=== PATIENT | female | born 1965 | race Caucasian/White ===

== ENCOUNTER 2020-06-12 09:09 | Outpatient (CLI) | payer BC, SELFPAY ==
--- NOTE | 2020-06-12 09:13 | US_ITS ---
WS: [id number] Complete ABDOMINAL ULTRASOUND HISTORY: ELEVATED LFT'S COMPARISON: None available. Liver: 17.4 cm in length. Liver is slightly enlarged with moderate coarsened echotexture. No mass or bile duct dilatation. Gallbladder: Prior cholecystectomy. Pancreas: Head and tail are poorly visualized. The body is negative. CBD: 0.5 cm. Right kidney: 11.0 cm x 4.4 cm x 4.3 cm. Normal size kidney. There is an exophytic solid appearing n odule from the inferior pole measuring 1.3 x 1.6 x 1.4 cm. Hypoechoic nodule is probably a cyst from the upper pole measuring 1.9 x 1.9 x 2.7 cm. Left kidney: 11.3 cm x 4.8 cm x 4.6 cm. No mass, cortical thickening or hydronephrosis. Spleen: Normal size and echogenicity. Abdominal aorta and IVC are within normal limits. No ascites. US/US abdomen complete* [id number] IMPRESSION: 1. Suspicious for solid renal mass lower pole RIGHT kidney. Additional complex cyst upper pole RIGHT kidney. Recommend [address] protocol for fur ther evaluation. 2. Prior cholecystectomy. 3. Mild hepatomegaly with hepatic steatosis.
== END 2020-06-12 09:10 | disposition home or self-care (01) ==
PROVIDERS: PCP Nurse Practitioner; Visit Provider Nurse Practitioner
DX: R94.5 Abnormal results of liver function studies (principal); R16.0 Hepatomegaly, not elsewhere classified; K76.0 Fatty (change of) liver, not elsewhere classified
CPT/HCPCS: 76700

== ENCOUNTER 2020-10-14 09:55 | Outpatient (CLI) | payer OTHER, SELFPAY ==
--- NOTE | 2020-10-14 10:03 | CT_ITS ---
WS: [id number] CT ABDOMEN NON-CONTRAST PLUS CONTRAST TECHNIQUE: Noncontrast CT of the abdomen and contrast-enhanced CT of the abdomen with coronal and sag ittal reformatted images. CLINICAL INFORMATION: RIGHT RENAL MASS, OTHER DISORDERS OF KIDNEY AND URETER COMPARISON: Ultrasound June 12, 2020 DLP: 2077.[address] scans at [facility] use at least one of these dose optimization techniques: automat ed exposure control; mA and/or kV adjustment per patient size (includes targeted exams where dose is matched to clinical indication); or iterative reconstruction. FINDINGS: Small low-attenuation cortical lesion lower pole right kidney laterally with no significant enhanceme nt. This appears to represent a small complex renal cyst. This measures approximately 1.2 x 1.1 x 1.2 CM. Additional smaller subcentimeter low-attenuation lesions likely renal cysts but difficult to definiti vely characterize. Incidental cyst upper pole right kidney measuring 1.8 x 1.8 cm. Diffuse fatty infiltration of the liver. Cholecystectomy clips. Normal spleen. Adrenal glands are nor mal. Mild fatty atrophy of the pancreas. Normal proximal ureters. Lung bases are well aerated. Normal GE junction. No abdominal lymphadenopathy. Disc space narrowing L5-S1. CT/CT abdomen wo/w con [id number] IMPRESSION: 1. Exophytic right lower lobe renal lesion most consistent with a small comple x renal cyst described above. No significant enhancement. Recommend 6-12 month follow-up with contrast-enhanced CT. 2. Additional smaller low-attenuation lesions bilaterally likely renal cysts b ut some are too small to characterize. 3. Right upper pole renal cyst measuring 1.8 x 1.8 cm. 4. No hydronephrosis in either kidney. 5. Normal adrenal glands. 6. Cholecystectomy. 7. Diffuse fatty infiltration liver.
[2020-10-14] MEDS: iohexol 300 mg/mL 100 mL Btl IV (10:34)
== END 2020-10-14 09:56 | disposition home or self-care (01) ==
PROVIDERS: PCP Nurse Practitioner; Visit Provider Nurse Practitioner
DX: N28.89 Other specified disorders of kidney and ureter (principal); K76.89 Other specified diseases of liver; Z90.49 Acquired absence of other specified parts of digestive tract; N28.1 Cyst of kidney, acquired
CPT/HCPCS: 74170; Q9967

== ENCOUNTER 2021-04-25 08:18 | Outpatient (CLI) | payer OTHER, SELFPAY ==
--- NOTE | 2021-04-25 | CT_ITS ---
WS: [id number] CT ABDOMEN WITH CONTRAST HISTORY: RENAL MASS Contiguous single phase 5 mm axial imaging performed to the abdomen. Oral contrast has not been provi ded. Coronal and sagittal reformats are submitted. All CT scans at [facility] use at least on e of these dose optimization techniques: automated exposure control; mA and/or kV adjustment per cameron ent size (includes targeted exams where dose is matched to clinical indication); or iterative reconst ruction. CONTRAST: Omnipaque 300; 95 mL IV. DLP: 2076.65 mGycm COMPARISON: 10/14/2020 Lower thorax: Lungs are clear. Normal heart. No hiatal hernia. Liver: Mild hepatic steatosis and hepatomegaly. No bile duct dilatation or mass. Gallbladder: Prior cholecystectomy. Pancreas: Normal. Spleen: Normal. Adrenals: Normal. Right kidney: Normal size kidney. Simple cyst upper pole measures 1.6 cm and is unchanged. There is a smaller cyst in the mid kidney. Exophytic 11 mm nodule from the lower pole is unchanged in size. Thi s did not enhance on the prior study and consistent with a benign-appearing cyst. Hounsfield units ar e low today. Left kidney: There are a few small cortical hypodensities which are too small to characterize. No mas s or obstruction. Aorta: Normal. GI tract: As visualized within the abdomen normal. No adenopathy or free fluid. Abdominal wall: No hernia. Visualized osseous structures: Unremarkable. CT/CT abdomen w con* [id number] IMPRESSION: 1. No solid renal mass or enlarging mass. 2. No enhancement of the 11 mm nodule from the lower pole of the RIGHT kidney. Hounsfield units are low consistent with a simple cyst. 3. Additional cysts within the RIGHT kidney are stable. Next a prior cholecyst ectomy.
[2021-04-25] MEDS: iohexol 300 mg/mL 100 mL Btl IV (09:58)
== END 2021-04-25 08:19 | disposition home or self-care (01) ==
LOC: RADWPI 08:20
PROVIDERS: PCP Nurse Practitioner; Visit Provider Nurse Practitioner
DX: N28.89 Other specified disorders of kidney and ureter (principal)
CPT/HCPCS: 74160; Q9967

== ENCOUNTER 2021-06-26 11:36 | Outpatient (CLI) | payer OTHER, SELFPAY ==
--- NOTE | 2021-06-26 11:43 | MM_ITS ---
WS: [id number] Bilateral screening digital mammogram, 06/26/2021 Clinical Data: SCREENING Comparison: 12/21/2019 Findings: The breast parenchymal pattern shows fat replacement. No spiculated masses or clustered calcification s are seen. There are no secondary signs of carcinoma. MM/[place] [id number] Impression: 1. Negative bilateral mammogram unchanged. 2. Recommend annual screening mammograms. BIRADS: 1-Negative FOLLOW UP: 1 Year Follow-up The CAD electric distribution checker was used.
== END 2021-06-26 11:37 | disposition home or self-care (01) ==
LOC: RADSHAW 11:41
PROVIDERS: PCP Nurse Practitioner; Visit Provider Nurse Practitioner
DX: Z12.31 Encounter for screening mammogram for malignant neoplasm of breast (principal)
CPT/HCPCS: 77067

== ENCOUNTER → 2021-07-17 08:52 | Outpatient (BNVA) | payer OTHER, SELFPAY | PROVIDERS: PCP Nurse Practitioner; Visit Provider Nurse Practitioner | DX: Z01.812 Encounter for preprocedural laboratory examination (principal); Z20.822 Contact with and (suspected) exposure to COVID-19 | CPT/HCPCS: 87635 ==

== ENCOUNTER 2022-06-25 06:36 | Day surgery (SDC) | payer OTHER, SELFPAY ==
[2022-06-24 09:02] VITALS: BMI 36.6
--- NOTE | 2022-06-25 06:44 | P.HP_ITS ---
Same Day Surgery H&P Indication for Procedure/HPI DATE OF PROCEDURE: June 25, 2022 CHIEF COMPLAINT/INDICATIONFOR SURGICAL PROCEDURE: Screening colonoscopy PREOP DIAGNOSIS: screening colonoscopy PLANNED PROCEDURE: Operation Date: 06/25/22 08:15 Proposed Procedures p Colonoscopy 06303(Not Applicable) - Manoj Morfin MD This is a pleasant 56 years old female patient never had a colonoscopy before and referred to my practice for screening colonoscopy. Patient was told that she had occult blood positive in stool and she had history of hemorrhoids. She denies history of colon cancer. No history of nonintentional weight loss, history of pyloromyotomy for pyloric stenosis when she was a baby ROS All systems have been reviewed negative except as for the above or per problem list. Medications/Allergies* Home Medications Medication Instructions Recorded Confirmed Type atenolol 25 mg tablet 25 mg PO DAILY 06/04/22 06/24/22 History cetirizine 10 mg tablet 10 mg PO DAILY PRN allergies 06/04/22 06/24/22 History citalopram 20 mg tablet 20 mg PO DAILY 06/04/22 06/24/22 History fluticasone 250 mcg-salmeterol 50 1 inh inhalation BID PRN allergies 06/04/22 06/24/22 History mcg/dose blistr powdr for inhalation (Advair Diskus) fluticasone propionate 50 1 spray intranasal BID PRN 06/04/22 06/24/22 History mcg/actuation nasal allergies spray,suspension (Allergy Relief (fluticasone)) garlic 100 mg tablet 100 mg PO DAILY 06/04/22 06/24/22 History hydrochlorothiazide 25 mg tablet 25 mg PO DAILY 06/04/22 06/24/22 History sitagliptin 25 mg tablet (Januvia) 25 mg PO DAILY 06/04/22 06/24/22 History levothyroxine 75 mcg tablet 75 mcg PO DAILY 06/24/22 06/24/22 History Allergies/Adverse Reactions Allergy/AdvReac Type Severity Reaction Status Date / Time amoxicillin Allergy rash Verified 06/25/22 07:45 metformin Allergy diarrhea Verified 06/25/22 07:45 Pertinent Exam Findings alert, oriented x 3, clear to auscultation bilaterally, regular rate & rhythm and procedure specific exam findings (Abdominal exam nontender nondistended soft) Recommendations Surgery/Procedure today (Colonoscopy with possible biopsy) Other Plans: Plan of care; After thorough history and physical examination and reviewing the chart, plan to perform screening colonoscopy. I discussed with the patient in details the risks,benefits,alternatives and indications.The risk of aspiration, bleeding, soft tissue injury, perforation of the colon ,missed lesions and other potential concomitant complications were explained to the patient in details,also the potential need for Laproscoy/Laparotomy to repair any related complications including but not limited to colectomy and or Closotomy.The patient understood this well and did agree to proceed. Rationale was carefully and clearly discussed with the patient.Appropriate informed consent have been reviewed and signed All questions have been answered and all concerns have been addressed to patient's satisfaction. Verbal and written Instructions were given to the patient for colonoscopy prep Coding Level of Care Code Acute Tile Trimmer for Leona Ely
[2022-06-25 07:06] VITALS: BP 156/75; PULSE 54; RESP 18; TEMP 36.1; O2SAT 97
[2022-06-25] MEDS: sodium chloride 0.9% 1,000 ML 30 ML IV (07:11)
--- NOTE | 2022-06-25 07:12 | ANES.PREANE2 ---
Pre-Anesthetic Assessment Height/Weight: Height 1.65 m Weight 99.79 kg Temp Pulse Resp BP Pulse Ox O2 Del Method 97.0 F L 54 L 18 156/75 97 06/25/22 07:06 06/25/22 07:06 06/25/22 07:06 06/25/22 07:06 06/25/22 07:06 06/25/22 07:06 Preop Diagnosis: Screening colonoscopy Operation Date: 06/25/22 08:15 Proposed Procedures p Colonoscopy 11226(Not Applicable) - Manoj Morfin MD Familial anesthetic complications: None Was Beta Olga Lidia taken within 24 hours: Yes Was Clonidine taken within 24 hours: N/A Last intake: Intake Last Liquid Date 06/24/22 Last Liquid Time 21:00 Last Solid Date 06/23/22 Last Solid Time 18:00 Social No alcohol and No tobacco Exam alert, oriented x 3, clear to auscultation bilaterally and regular rate & rhythm Airway Submandibular: within normal limits Cervical ROM: within normal limits Mallampati: Class II Comments: Comments: Missing front teeth History/ROS No significant history except as noted and No significant complaints Pulmonary Asthma (Used unhaler this AM), Cough and Exertional Dyspnea CV/HEM Hypertension and Palpitations Cyst on right kidney Hepatic Cirrhosis GI Gastroesophageal Reflux Disease (Controlled with med) No pyloric muscle to stomach Metabolic Diabetes Mellitus (Pre-diabetic), Hyperlipidemia and Thyroid Disease Musc/skel Lower Back Pain and Osteoarthritis/DJD Neuropsych Anxiety and Depression Anesthetic Plan ASA status: 3 Anesthesia: Anesthesia Evaluation, General and MAC Risk of > 500 ml blood loss (7ml/kg in children): No Medications/Allergies Home Medications Medication Instructions Recorded Confirmed Last Taken Type atenolol 25 mg tablet 25 mg PO DAILY 06/04/22 06/25/22 06/25/22 History cetirizine 10 mg tablet 10 mg PO DAILY PRN allergies 06/04/22 06/25/22 06/24/22 History citalopram 20 mg tablet 20 mg PO DAILY 06/04/22 06/25/22 06/24/22 History fluticasone 250 mcg-salmeterol 50 1 inh inhalation BID PRN allergies 06/04/22 06/25/22 06/24/22 History mcg/dose blistr powdr for inhalation (Advair Diskus) fluticasone propionate 50 1 spray intranasal BID PRN 06/04/22 06/25/22 06/24/22 History mcg/actuation nasal allergies spray,suspension (Allergy Relief (fluticasone)) garlic 100 mg tablet 100 mg PO DAILY 06/04/22 06/25/22 06/24/22 History hydrochlorothiazide 25 mg tablet 25 mg PO DAILY 06/04/22 06/25/22 06/24/22 History sitagliptin 25 mg tablet (Januvia) 25 mg PO DAILY 06/04/22 06/25/22 06/24/22 History levothyroxine 75 mcg tablet 75 mcg PO DAILY 06/24/22 06/25/22 06/24/22 History Allergies Allergy/AdvReac Type Severity Reaction Status Date / Time amoxicillin Allergy rash Verified 06/25/22 06:58 metformin Allergy diarrhea Verified 06/25/22 06:58 Current Medications Generic Name Dose Route Start Last Admin Trade Name Freq PRN Reason Stop Dose Admin Sodium Chloride 1,000 mls @ 30 mls/hr 06/25/22 06:45 06/25/22 07:11 Sodium Chloride 0.9% IV 06/26/22 06:44 30 mls/hr .Q24H BRANNON Administration Data Anesthesia Cardiac Studies: No Data to Display
[2022-06-25 07:13] LABS: Glucose Point of Care 124 mg/dL (70-110)
[2022-06-25 08:40] VITALS: BP 106/71; PULSE 58; RESP 20; TEMP 36.1; O2SAT 96
[2022-06-25 08:50] VITALS: BP 105/84; PULSE 59; RESP 18; O2SAT 94
[2022-06-25 09:33] LABS: OR HCG Qualitative Urine Negative (Negative)
--- NOTE | 2022-06-25 15:18 | ANE.PACU2 ---
Inpatient post-anesthesia follow up: Airway intact: Yes Vital signs: Temperature 97.0 F Pulse Rate 59 Respiratory Rate 18 Blood Pressure 105/84 Pulse Oximetry 94 Oxygen Delivery Me thod Room Air Oxygen Flow Rate 3 Fraction of Inspir ed Oxygen Hydration adequate: Yes Nausea and vomiting: No Pain level: 1 Mental status: Baseline
== END 2022-06-25 09:21 | disposition home or self-care (01) ==
PROVIDERS: Anesthesiology; PCP Nurse Practitioner Family; Visit Provider Surgery
PROC: 0DJD8ZZ Inspection of Lower Intestinal Tract, Via Natural or Artificial Opening Endoscopic (ICD-10-PCS; CPT 45378; principal; 2022-06-25 08:15)
DX: Z12.11 Encounter for screening for malignant neoplasm of colon (principal); D12.4 Benign neoplasm of descending colon; D12.3 Benign neoplasm of transverse colon; I10 Essential (primary) hypertension; K21.9 Gastro-esophageal reflux disease without esophagitis; E11.9 Type 2 diabetes mellitus without complications; E78.5 Hyperlipidemia, unspecified
CPT/HCPCS: 36416; 45380; 81025; 82962; 84703; 88305; J2704; J3490; J7030

== ENCOUNTER 2022-06-29 08:09 | Outpatient (CLI) | payer OTHER, SELFPAY ==
--- NOTE | 2022-06-29 08:26 | MM_ITS ---
WS: [id number] SCREENING DIGITAL TOMOSYNTHESIS MAMMOGRAM WITH CAD HISTORY: SCREENING COMPARISON: 06/26/2021 and 12/21/2019 Bilateral CC and MLO with tomosynthesis views submitted. Synthetic mammography reviewed. Computer aid ed detection analyzed. Breast composition: There are scattered areas of fibroglandular density. No suspicious masses, microc alcifications or architectural distortion. MM/[place] [id number] IMPRESSION: BI-RADS: 1-Negative FOLLOW UP: 1 Year Follow-up
== END 2022-06-29 08:10 | disposition home or self-care (01) ==
PROVIDERS: PCP Nurse Practitioner Family; Visit Provider Nurse Practitioner Family
DX: Z12.31 Encounter for screening mammogram for malignant neoplasm of breast (principal)
CPT/HCPCS: 77063; 77067

== ENCOUNTER → 2023-02-04 12:31 | Outpatient (BNVA) | payer OTHER, SELFPAY | PROVIDERS: PCP Nurse Practitioner Family; Visit Provider Obstetrics & Gynecology | DX: D25.9 Leiomyoma of uterus, unspecified (principal) | CPT/HCPCS: 76830 ==

== ENCOUNTER 2023-02-11 12:31 | Day surgery (SDC) | payer OTHER, SELFPAY ==
[2023-02-10 14:31] VITALS: BMI 36.6
[2023-02-11] VITALS (10 sets, daily range): BP systolic 129–176; BP diastolic 69–100; PULSE 49–74; RESP 12–18; TEMP 35.9–36.6; O2SAT 92–100
[2023-02-11 13:03] LABS: OR HCG Qualitative Urine Negative (Negative)
[2023-02-11] MEDS: sodium chloride 0.9% 1,000 ML 30 ML IV (13:06)
[2023-02-11 13:10] LABS: Glucose Point of Care 116 mg/dL (70-110)
--- NOTE | 2023-02-11 13:52 | ANES.PREANE2 ---
Pre-Anesthetic Assessment Height/Weight: Height 1.65 m Weight 99.79 kg Temp Pulse Resp BP Pulse Ox O2 Del Method 96.7 F L 49 L 16 160/69 97 Room Air 02/11/23 12:58 02/11/23 12:58 02/11/23 12:58 02/11/23 12:58 02/11/23 12:58 02/11/23 12:58 Preop Diagnosis: abnormal uterine bleeding Operation Date: 02/11/23 14:10 Proposed Procedures p [Hysteroscopy, endometrial sampling 78966, possible endometrial polypectomy w/Myosure 97122,N93.9(Not Applicable) - River Rios MD s Poylpectomy(Not Applicable) - River Rios MD Familial anesthetic complications: None Was Beta Olga Lidia taken within 24 hours: Yes Was Clonidine taken within 24 hours: N/A Last intake: Intake Last Liquid Date 02/10/23 Last Liquid Time 21:30 Last Solid Date 02/10/23 Last Solid Time 21:30 Social No alcohol and No tobacco Exam alert, oriented x 3, clear to auscultation bilaterally and regular rate & rhythm Airway Mallampati: Class II Dentition: other (missing) Comments: Comments: 1 bottom tooth loose (states its a residual baby tooth) - informed patient of possible risk of dislodgement Pulmonary Asthma (used inhaler at 11 AM), Cough and Exertional Dyspnea CV/HEM Hypertension Hepatic fatty liver GI Gastroesophageal Reflux Disease Metabolic Diabetes Mellitus, Hyperlipidemia, Morbid Obesity and Thyroid Disease Anesthetic Plan ASA status: 3 Anesthesia: General Risk of > 500 ml blood loss (7ml/kg in children): No Medications/Allergies Home Medications Medication Instructions Recorded Confirmed Last Taken Type atenolol 25 mg tablet 25 mg PO DAILY 06/04/22 02/11/23 02/11/23 History cetirizine 10 mg tablet 10 mg PO DAILY PRN allergies 06/04/22 02/10/23 06/24/22 History citalopram 20 mg tablet 20 mg PO DAILY 06/04/22 02/10/23 06/24/22 History fluticasone 250 mcg-salmeterol 50 1 inh inhalation BID PRN allergies 06/04/22 02/10/23 06/24/22 History mcg/dose blistr powdr for inhalation (Advair Diskus) fluticasone propionate 50 1 spray intranasal BID PRN 06/04/22 02/10/23 06/24/22 History mcg/actuation nasal allergies spray,suspension (Allergy Relief (fluticasone)) garlic 100 mg tablet 100 mg PO DAILY 06/04/22 02/10/23 06/24/22 History hydrochlorothiazide 25 mg tablet 25 mg PO DAILY 06/04/22 02/10/23 06/24/22 History sitagliptin phosphate 25 mg tablet 25 mg PO DAILY 06/04/22 02/10/23 06/24/22 History (Januvia) levothyroxine 75 mcg tablet 75 mcg PO DAILY 06/24/22 02/11/23 02/11/23 History Allergies Allergy/AdvReac Type Severity Reaction Status Date / Time amoxicillin Allergy rash Verified 02/10/23 08:32 metformin Allergy diarrhea Verified 02/10/23 08:32 Current Medications Generic Name Dose Route Start Last Admin Trade Name Freq PRN Reason Stop Dose Admin Sodium Chloride 1,000 mls @ 30 mls/hr 02/11/23 13:00 02/11/23 13:06 Sodium Chloride 0.9% IV 02/12/23 12:59 30 mls/hr .Q24H BRANNON Administration PFSH Anesthesia Family History (System 02/10/23 @ 08:32 by Caroline Hood) Sister Diabetes Father Diabetes Heart disease Stroke Hypertension Thyroid disease Mother Diabetes Grandmother No problems noted. Denies family history of Colon cancer Ovarian cancer Breast cancer Uterine cancer Data Anesthesia Cardiac Studies: No Data to Display
--- NOTE | 2023-02-11 14:35 | W.PM.OPSUD ---
Surgery/Procedure H&P Update DATE OF PROCEDURE: February 11, 2023 DATE H&P PERFORMED: 06/25/22 CHANGES TO PREVIOUS DOCUMENTATION: none PREOP DIAGNOSIS: abnormal uterine bleeding PRIMARY INDICATION FOR PROCEDURE: abnormal uterine bleeding PLANNED PROCEDURE: Operation Date: 02/11/23 14:10 Proposed Procedures p [Hysteroscopy, endometrial sampling 62556, possible endometrial polypectomy w/Myosure 10824,N93.9(Not Applicable) - River Rios MD s Poylpectomy(Not Applicable) - River Rios MD
[2023-02-11] MEDS: albuterol 2.5 mg/3 mL Neb (17:15)
--- NOTE | 2023-02-11 17:15 | SUR.PHASEII ---
1710 pt wheezing and albuterol treatment in process
--- NOTE | 2023-02-17 01:19 | PM.OP ---
Operative Report Date of procedure: February 11, 2023 Pre-op diagnosis: Preop Diagnosis abnormal uterine bleeding Post-op diagnosis: same Post-op findings: uterus sounded to 9 cm Multiple polypoid masses in endometrial cavity Moderate endometrial tissue irregularly arranged Procedure done: hysteroscopy Endometrial sampling with Myosure device Curettage of uterus Endometrial polypectomy with Mysoure device Specimens removed/disposition: endometrial tissue Surgeon: River Rios MD Anesthesia: MAC Estimated blood loss (mL): 5 Complications: none Condition: stable Disposition: PACU Brief History: 57 y.o. with abnormal uterine bleeding Procedure: Informed consent signed. Patient taken to the operating room.? Anesthesia induced.? Patient was placed in dorsolithotomy position, prepped and draped for hysteroscopy.? A bivalve speculum was placed in the vagina.? The anterior lip of the cervix was grasped with a sharp-toothed tenaculum.? The cervix was serially dilated with Hegar dilators.? .? A hysteroscope was placed into the endometrial cavity. Uterus sounded to 9 cm.? Multiple polypoid masses can be seen in the endometrial cavity.? Moderate endometrial tissue irregularly arranged was also seen.? A Mysoure device was used to remove the endometrial polyps and to obtain endometrial tissue.? These were sent to pathology.? Following this, a sharp curette was also used to obtain endometrial tissue and sent to pathology. No bleeding was seen.? All instruments were then removed from the endometrial cavity, cervix and vagina.? There was no bleeding from the endometrial cavity or cervix.? The patient was then placed supine and awakened and taken to the PACU. Postop condition:? stable EBL:? none Sponge and instruments counts were normal x 2 Complications:? none
[2023-02-18 08:27] LABS: Mismatch Repari Proteins-IHC See Report
== END 2023-02-11 17:50 | disposition home or self-care (01) ==
PROVIDERS: Anesthesiology; PCP Nurse Practitioner Family; Visit Provider Obstetrics & Gynecology
PROC: 0UJD8ZZ Inspection of Uterus and Cervix, Via Natural or Artificial Opening Endoscopic (ICD-10-PCS; CPT 58555; principal; 2023-02-11 14:00)
DX: C54.1 Malignant neoplasm of endometrium (principal); J45.909 Unspecified asthma, uncomplicated; I10 Essential (primary) hypertension; K21.9 Gastro-esophageal reflux disease without esophagitis; E11.9 Type 2 diabetes mellitus without complications; E78.5 Hyperlipidemia, unspecified; E66.01 Morbid (severe) obesity due to excess calories; Z68.36 Body mass index [BMI] 36.0-36.9, adult; E03.9 Hypothyroidism, unspecified
CPT/HCPCS: 58558; 36416; 82962; 84703; 88305; 88341; 88342; A4216; J0131; J0330; J1100; J1200; J1885; J2250; J2405; J2704; J3010; J7030; J7613

== ENCOUNTER → 2023-06-09 09:23 | Outpatient (BNVA) | payer OTHER, SELFPAY | PROVIDERS: PCP Nurse Practitioner Family; Visit Provider Nurse Practitioner Family | DX: J02.9 Acute pharyngitis, unspecified (principal); Z20.822 Contact with and (suspected) exposure to COVID-19 | CPT/HCPCS: 87400; 87426 ==

== ENCOUNTER 2023-07-19 14:23 | Outpatient (CLI) | payer OTHER, SELFPAY ==
--- NOTE | 2023-07-19 14:50 | MM_ITS ---
WS: [id number] BILATERAL 3D TOMOSYNTHESIS DIGITAL SCREENING MAMMOGRAPHY WITH CAD CLINICAL INFORMATION: SCREENING HISTORY: Screening mammogram. No current complaints. COMPARISON: 06/29/2022 TECHNIQUE: Bilateral CC and MLO views. FINDINGS: Scattered fibroglandular densities bilaterally. No suspicious focal mass, asymmetry, calcifications, or architectural distortion. No evidence of malignancy. A few tiny incidental lucent centered and pun ctate calcifications. IMPRESSION: MM/[place] [id number] BI-RADS: 2-Benign FOLLOW UP: 1 Year Follow-up Recommend return to annual screening mammography.
== END 2023-07-19 14:24 | disposition home or self-care (01) ==
LOC: RAD 14:23
PROVIDERS: PCP Nurse Practitioner Family; Visit Provider Nurse Practitioner Family
DX: Z12.31 Encounter for screening mammogram for malignant neoplasm of breast (principal)
CPT/HCPCS: 77063; 77067

== ENCOUNTER 2024-06-06 06:01 | Outpatient (CLI) | payer BC, SELFPAY ==
--- NOTE | 2024-06-06 06:09 | US_ITS ---
WS: [id number] RIGHT UPPER QUADRANT ULTRASOUND HISTORY: Elevated Liver Enzymes COMPARISON: 06/12/2020 Liver: 18.0 cm in length. Enlarged liver with increased attenuation. The liver is poorly visualized i n its entirety due to the attenuation. Portal Vein: Normal hepatopetal flow with monophasic waveform. Gallbladder: Prior cholecystectomy. CBD: 0.5 cm Pancreas: Not visualized. Right kidney: 10.4 cm in length. Normal size kidney. Cortical cyst upper pole 3.0 x 2.5 x 2.3 cm. No obstruction or solid mass. Aorta and IVC: Unremarkable abdominal aorta and IVC. No ascites. US/US abdomen limited [id number] IMPRESSION: 1. Significant limited evaluation of the RIGHT upper quadrant due to body habi tus. 2. Mild hepatomegaly with advanced hepatic steatosis. Steatosis has progressed since 2019. 3. Prior cholecystectomy. 4. RIGHT renal cyst has slightly increased in size since the CT of 04/25/2021.
== END 2024-06-06 06:02 | disposition home or self-care (01) ==
LOC: RAD 06:02
PROVIDERS: PCP Nurse Practitioner Family; Visit Provider Nurse Practitioner Family
DX: K76.0 Fatty (change of) liver, not elsewhere classified (principal); N28.1 Cyst of kidney, acquired; Z90.49 Acquired absence of other specified parts of digestive tract; R74.8 Abnormal levels of other serum enzymes
CPT/HCPCS: 76705

== ENCOUNTER 2024-07-21 08:14 | Outpatient (CLI) | payer BC, SELFPAY ==
--- NOTE | 2024-07-21 08:16 | MM_ITS ---
WS: [id number] BILATERAL SCREENING DIGITAL TOMOSYNTHESIS MAMMOGRAM WITH CAD HISTORY: SCREENING COMPARISON: 07/19/2023, 06/29/2022 Bilateral CC and MLO views with tomosynthesis and synthetic mammography submitted. Computer aided det ection analyzed. Breast composition: There are scattered areas of fibroglandular density. No suspicious masses, microc alcifications or architectural distortion. MM/MM scr BI tomosynthesis [id number] IMPRESSION: BI-RADS: 2 - Benign. FOLLOW UP: 1 Year Follow-up
== END 2024-07-21 08:15 | disposition home or self-care (01) ==
LOC: RAD 08:15
PROVIDERS: PCP Nurse Practitioner Family; Visit Provider Nurse Practitioner Family
DX: Z12.31 Encounter for screening mammogram for malignant neoplasm of breast (principal); R92.323 Mammographic fibroglandular density, bilateral breasts
CPT/HCPCS: 77063; 77067

== ENCOUNTER 2025-05-30 07:52 | Outpatient (CLI) | payer BC, SELFPAY ==
--- NOTE | 2025-05-30 08:05 | XR_ITS ---
WS: [id number] XR ankle RT min 3V* [id number] REASON FOR EXAM: RIGHT ANKLE PAIN, FALL FINDINGS: Tiny avulsion fracture mildly displaced from the tip of the apex of the lateral malleolus. Presumed medial lateral ligamentous injury. Joint spaces of the ankle are intact and well preserved. XR/XR ankle RT min 3V* [id number] IMPRESSION: Tiny avulsion fracture from the lateral malleolus as above.
== END 2025-05-30 07:53 | disposition home or self-care (01) ==
PROVIDERS: PCP Nurse Practitioner Family; Visit Provider Nurse Practitioner Family
DX: M25.571 Pain in right ankle and joints of right foot (principal); S93.401A Sprain of unspecified ligament of right ankle, initial encounter; W19.XXXA Unspecified fall, initial encounter
CPT/HCPCS: 73610

== ENCOUNTER 2025-07-25 07:54 | Outpatient (CLI) | payer BC, SELFPAY ==
--- NOTE | 2025-07-25 08:01 | MM_ITS ---
WS: [id number] BILATERAL SCREENING DIGITAL TOMOSYNTHESIS MAMMOGRAM WITH CAD HISTORY: SCREENING COMPARISON: 07/21/2024, 07/19/2023 Bilateral CC and MLO views with tomosynthesis and synthetic mammography submitted. Computer aided detection analyzed. Breast composition: The breasts are almost entirely fatty. No suspicious masses, microcalcifications or architectural distortion. There are a few benign scattered calcifications. MM/MM scr BI tomosynthesis [id number] IMPRESSION: BI-RADS: 2 - Benign. FOLLOW UP: 1 Year Follow-up
== END 2025-07-25 07:55 | disposition home or self-care (01) ==
LOC: RAD 07:55
PROVIDERS: PCP Nurse Practitioner Family; Visit Provider Nurse Practitioner Family
DX: Z12.31 Encounter for screening mammogram for malignant neoplasm of breast (principal); R92.313 Mammographic fatty tissue density, bilateral breasts; R92.1 Mammographic calcification found on diagnostic imaging of breast
CPT/HCPCS: 77063; 77067